=== PATIENT | male | born 1960 | race Caucasian/White ===

== ENCOUNTER 2017-02-13 03:31 | Inpatient (IN) ==
[2017-02-13] MEDS ORDERED: PIPERACILLIN/TAZOBACTAM 3,375 MG in SODIUM CHLORIDE 0.9% 100 ML IV STA (03:55)
[2017-02-13] MEDS ORDERED: MORPHINE 2 MG/1 ML SYRINGE IV STA (03:55)
[2017-02-13] MEDS ORDERED: ONDANSETRON 4 MG/2 ML VIAL IV STA (03:55)
[2017-02-13] MEDS ORDERED: SODIUM CHLORIDE 0.9% 1,000 ML IV STA (03:55)
[2017-02-13] MEDS ORDERED: MORPHINE 2 MG/1 ML SYRINGE ONE (04:22)
[2017-02-13] MEDS ORDERED: ONDANSETRON 4 MG/2 ML VIAL ONE (04:22)
[2017-02-13 04:26] LABS: Basophils % 0.5 % (0.0-0.8); Eosinophils # 0.1 10*3/uL (0.0-0.87); Eosinophils % 1.6 % (0.00-10.9); Hematocrit 46.2 VOL% (42.0-52.0); Hemoglobin 16.2 GM/DL (14.0-18.0); Immature Granulocytes % 0.4 %; Immature Granulocytes Absolute 0.03 #; Lymphocytes # 1.5 10*3/uL (1.4-4.0); Lymphocytes % 20.5 % (21.2-54.2); Mean Corpuscular HGB Conc 35.1 GM/DL (32-36); Mean Corpuscular Hemoglobin 31 PG (27-34); Mean Corpuscular Volume 88.2 FL (87-102); Mean Platelet Volume 10.4 FL (9.6-12.0); Monocytes # 0.4 10*3/uL (0.11-0.8); Monocytes % 4.9 % (1.7-12.7); Neutrophils # 5.3 10*3/uL (1.4-7.4); Neutrophils % 72.1 % (38.7-73.9); Platelet Count 212 T/CUMM (130-400); Red Blood Count 5.24 MC/CUMM (3.8-5.5); Red Cell Distribution Width 12.8 % (9.3-17.3); White Blood Count 7.3 T/CUMM (4-12)
[2017-02-13] MEDS ORDERED: PIPERACILLIN/TAZOBACTAM 3,375 MG VIAL IV ONE (04:39)
[2017-02-13] MEDS ORDERED: HYDROmorphone 2 MG/1 ML VIAL IV STA (04:52)
[2017-02-13] MEDS ORDERED: HYDROmorphone 2 MG/1 ML VIAL ONE (04:54)
[2017-02-13 04:58] LABS: Albumin 3.9 G/DL (3.4-5.0); Bilirubin,Total 0.6 MG/DL (0.2-1.0); Osmolality,Calculated 279.4 MOS/KG (273-304); Potassium 4.4 MMOL/L (3.5-5.1); Total Protein 7.4 G/DL (6.4-8.3)
[2017-02-13] MEDS ORDERED: HYDROmorphone 2 MG/1 ML VIAL IV PRN (08:36)
[2017-02-13] MEDS ORDERED: ACETAMINOPHEN 325 MG TABLET PO PRN (08:36)
[2017-02-13] MEDS ORDERED: ONDANSETRON 4 MG/2 ML VIAL IV PRN (08:36)
[2017-02-13] MEDS: GABAPENTIN 600 MG TABLET PO SCH ×3 (10:15→20:26)
[2017-02-13] MEDS: PANTOPRAZOLE 40 MG TABLET PO SCH (10:15)
[2017-02-13] MEDS: DEXTROSE 5% LACTATED RINGERS 1,000 ML IV SCH ×2 (10:30→16:45)
[2017-02-13] MEDS: PIPERACILLIN/TAZOBACTAM 3,375 MG in SODIUM CHLORIDE 0.9% 100 ML IV SCH ×2 (14:35→20:26)
[2017-02-14] MEDS: DEXTROSE 5% LACTATED RINGERS 1,000 ML IV SCH ×2 (02:35→09:40)
[2017-02-14] MEDS: PIPERACILLIN/TAZOBACTAM 3,375 MG in SODIUM CHLORIDE 0.9% 100 ML IV SCH ×3 (03:24→21:22)
[2017-02-14] MEDS: GABAPENTIN 600 MG TABLET PO SCH ×3 (09:00→21:21)
[2017-02-14] MEDS: PANTOPRAZOLE 40 MG TABLET PO SCH (09:00)
[2017-02-14] MEDS ORDERED: TISSUE ADHESIVE 1 EACH APPLICATOR TOP ONE (12:44)
[2017-02-14] MEDS ORDERED: BUPIVACAINE 0.25% 50 ML VIAL ONE (12:44)
[2017-02-14] MEDS ORDERED: SUGAMMADEX 200 MG/2 ML VIAL IV ONE (14:17)
[2017-02-14] MEDS ORDERED: PROPOFOL 200 MG/20 ML VIAL IV ONE (14:33)
[2017-02-14] MEDS ORDERED: NEOSTIGMINE 10 MG/10 ML VIAL ONE (14:34)
[2017-02-14] MEDS ORDERED: ACETAMINOPHEN 1,000 MG/100 ML VIAL IV ONE (14:34)
[2017-02-14] MEDS ORDERED: MIDAZOLAM 2 MG/2 ML VIAL ONE (14:34)
[2017-02-14] MEDS ORDERED: ONDANSETRON 4 MG/2 ML VIAL ONE (14:34)
[2017-02-14] MEDS ORDERED: fentaNYL 100 MCG/2 ML VIAL ONE (14:34)
[2017-02-14] MEDS ORDERED: GLYCOPYRROLATE 0.4 MG/2 ML VIAL ONE (14:34)
[2017-02-14] MEDS ORDERED: ROCURONIUM 100 MG/10 ML VIAL IV ONE (14:35)
[2017-02-14] MEDS ORDERED: SUCCINYLCHOLINE 200 MG/10 ML VIAL ONE (14:35)
[2017-02-15] MEDS: PIPERACILLIN/TAZOBACTAM 3,375 MG in SODIUM CHLORIDE 0.9% 100 ML IV SCH ×3 (03:13→20:05)
[2017-02-15 05:50] LABS: Basophils % 0.2 % (0.0-0.8); Eosinophils # 0.2 10*3/uL (0.0-0.87); Eosinophils % 3.5 % (0.00-10.9); Hematocrit 38.8 VOL% (42.0-52.0); Hemoglobin 13.1 GM/DL (14.0-18.0); Immature Granulocytes % 0.3 %; Immature Granulocytes Absolute 0.02 #; Lymphocytes # 1.6 10*3/uL (1.4-4.0); Lymphocytes % 28.1 % (21.2-54.2); Mean Corpuscular HGB Conc 33.8 GM/DL (32-36); Mean Corpuscular Hemoglobin 31 PG (27-34); Mean Corpuscular Volume 90.9 FL (87-102); Mean Platelet Volume 10.5 FL (9.6-12.0); Monocytes # 0.3 10*3/uL (0.11-0.8); Monocytes % 5.8 % (1.7-12.7); Neutrophils # 3.6 10*3/uL (1.4-7.4); Neutrophils % 62.1 % (38.7-73.9); Platelet Count 160 T/CUMM (130-400); Red Blood Count 4.27 MC/CUMM (3.8-5.5); Red Cell Distribution Width 12.8 % (9.3-17.3); White Blood Count 5.7 T/CUMM (4-12)
[2017-02-15 06:27] LABS: Calcium 8.3 MG/DL (8.5-10.1); Osmolality,Calculated 277.3 MOS/KG (273-304); Potassium 4.1 MMOL/L (3.5-5.1)
[2017-02-15] MEDS: DEXTROSE 5% LACTATED RINGERS 1,000 ML IV SCH ×3 (06:52→20:06)
[2017-02-15 07:55] LABS: Band Neutrophils 1 % (0-10); Eosinophils 3 % (0-10); Giant Platelets Few; Hypochromasia 1+; Lymphocytes 25 % (20-55); Microcytosis Slight; Ovalocytes Slight; Platelet Estimate Normal; Segmented Neutrophils 68 % (50-85); Total Cells Counted 100
[2017-02-15] MEDS: PANTOPRAZOLE 40 MG TABLET PO SCH (09:03)
[2017-02-15] MEDS: GABAPENTIN 600 MG TABLET PO SCH ×3 (09:03→21:19)
[2017-02-15 12:15] LABS: Calcium 7.9 MG/DL (8.5-10.1)
[2017-02-15 12:16] LABS: Potassium 4.2 MMOL/L (3.5-5.1)
[2017-02-15 13:22] LABS: Apearance,Urine CLEAR (Clear); Glucose,Urine (UA) Negative (Negative); Ketones,Urine Negative (Negative); Nitrite,Urine Negative (Negative); Protein,Urine Negative; Urine Color Straw (Yellow); Urine Specific Gravity 1.006 (1.001-1.035)
[2017-02-15 13:23] LABS: Bacteria,Urine Occasional /HPF (Few); Bilirubin,Urine Negative (Negative); Blood, Urine Negative (Negative); Urine Urobilinogen < 2.0 EU/DL (0.2-1.0); WBC,Urine <1 /HPF (0-6)
[2017-02-16] MEDS: DEXTROSE 5% LACTATED RINGERS 1,000 ML IV SCH ×2 (03:31→09:40)
[2017-02-16] MEDS: PIPERACILLIN/TAZOBACTAM 3,375 MG in SODIUM CHLORIDE 0.9% 100 ML IV SCH (04:42)
[2017-02-16 05:05] LABS: Calcium 7.8 MG/DL (8.5-10.1); Osmolality,Calculated 284.8 MOS/KG (273-304); Potassium 3.5 MMOL/L (3.5-5.1)
[2017-02-16] MEDS: GABAPENTIN 600 MG TABLET PO SCH (09:39)
[2017-02-16] MEDS: PANTOPRAZOLE 40 MG TABLET PO SCH (09:39)
[2017-02-16 13:03] VITALS: BP 120/66
== END 2017-02-16 12:58 | disposition home or self-care (01) | DRG 418 ==
LOC: N.EDINP 03:31 → N.ED 03:31 → N.3E 10:01
PROVIDERS: ADMIT Surgery; ATTEND Surgery
PROC: LAPCHOL (2017-02-14 13:14)

== ENCOUNTER 2017-09-12 07:14 | Inpatient (IN) ==
[2017-09-12] MEDS ORDERED: ONDANSETRON 4 MG/2 ML VIAL IV PRN ×2 (07:39→09:08)
[2017-09-12] MEDS ORDERED: MORPHINE 4 MG/1 ML VIAL IV PRN (07:39)
[2017-09-12] MEDS ORDERED: ASPIRIN 325 MG TABLET PO STA (07:39)
[2017-09-12 07:47] LABS: Basophils % 0.4 % (0.0-0.8); Eosinophils # 0.1 10*3/uL (0.0-0.87); Eosinophils % 1.6 % (0.00-10.9); Hematocrit 45.5 VOL% (42.0-52.0); Hemoglobin 16.1 GM/DL (14.0-18.0); Immature Granulocytes % 0.2 %; Immature Granulocytes Absolute 0.01 #; Lymphocytes # 1.5 10*3/uL (1.4-4.0); Mean Corpuscular HGB Conc 35.4 GM/DL (32-36); Mean Corpuscular Hemoglobin 31 PG (27-34); Mean Corpuscular Volume 88.3 FL (87-102); Mean Platelet Volume 10.5 FL (9.6-12.0); Monocytes # 0.3 10*3/uL (0.11-0.8); Monocytes % 6.3 % (1.7-12.7); Neutrophils # 2.6 10*3/uL (1.4-7.4); Neutrophils % 58.5 % (38.7-73.9); Platelet Count 181 T/CUMM (130-400); Red Blood Count 5.15 MC/CUMM (3.8-5.5); Red Cell Distribution Width 12.7 % (9.3-17.3); White Blood Count 4.5 T/CUMM (4-12)
[2017-09-12] MEDS ORDERED: ENOXAPARIN 80 MG/0.8 ML SYRINGE SUBCUT STA (07:52)
[2017-09-12 07:55] LABS: PT Patient Result 10.4 SECS; Partial Thromboplastin Time 25.4 SECS (0-40)
[2017-09-12 08:12] LABS: Albumin 3.7 G/DL (3.4-5.0); Bilirubin,Total 1.1 MG/DL (0.2-1.0); Calcium 8.9 MG/DL (8.5-10.1); Osmolality,Calculated 277.4 MOS/KG (273-304); Potassium 3.9 MMOL/L (3.5-5.1); Total Protein 7.5 G/DL (6.4-8.3)
[2017-09-12] MEDS ORDERED: amLODIPine 5 MG TABLET PO STA (09:07)
[2017-09-12] MEDS ORDERED: MAGNESIUM SULF RIDER 4 GM in PREMIX 1 EACH IV PRN (09:08)
[2017-09-12] MEDS ORDERED: MAGNESIUM SULF RIDER 2 GM in PREMIX 1 EACH IV PRN (09:08)
[2017-09-12] MEDS ORDERED: POTASSIUM CHLORIDE 20 MEQ TABLET PO PRN ×2 (09:08)
[2017-09-12] MEDS ORDERED: ALUM/MAG/SIMETH/LIDO VISC 1:1 30 ML BOTTLE PO PRN (09:08)
[2017-09-12] MEDS ORDERED: BISACODYL 5 MG TABLET PO PRN (09:08)
[2017-09-12 09:24] LABS: Risk Ratio 4.83; VLDL CHOLESTEROL 42.8 MG/DL
[2017-09-12 14:43] LABS: Apearance,Urine CLEAR (Clear); Bilirubin,Urine Negative (Negative); Blood, Urine Negative (Negative); Glucose,Urine (UA) Negative (Negative); Ketones,Urine Negative (Negative); Nitrite,Urine Negative (Negative); Protein,Urine Negative; RBC,Urine <1 /HPF (0-4); Urine Color Straw (Yellow); Urine Specific Gravity 1.015 (1.001-1.035); Urine Urobilinogen < 2.0 EU/DL (0.2-1.0); WBC,Urine <1 /HPF (0-6)
[2017-09-12 15:42] LABS: AFP Tumor 2.5 NG/ML (0-8); Cancer Antigen 19-9 8.6 U/ML (0-37); Carcinoembryonic Antigen 0.8 NG/ML (0.0-5.0)
[2017-09-12] MEDS: GABAPENTIN 600 MG TABLET PO SCH ×2 (17:26→21:18)
[2017-09-12] MEDS: ACETAMINOPHEN 325 MG TABLET PO SCH ×2 (18:24→21:18)
[2017-09-12] MEDS: CARVEDILOL 3.125 MG TABLET PO SCH (21:18)
[2017-09-12] MEDS: SIMVASTATIN 40 MG TABLET PO SCH (21:18)
[2017-09-12] MEDS: HEPARIN 5,000 UNIT/1 ML VIAL SUBCUT SCH (21:18)
[2017-09-13 05:02] LABS: Basophils % 0.6 % (0.0-0.8); Eosinophils # 0.1 10*3/uL (0.0-0.87); Eosinophils % 1.9 % (0.00-10.9); Hematocrit 46.5 VOL% (42.0-52.0); Hemoglobin 16.2 GM/DL (14.0-18.0); Immature Granulocytes % 0.4 %; Immature Granulocytes Absolute 0.02 #; Lymphocytes % 41.3 % (21.2-54.2); Mean Corpuscular HGB Conc 34.8 GM/DL (32-36); Mean Corpuscular Hemoglobin 31 PG (27-34); Mean Corpuscular Volume 88.4 FL (87-102); Monocytes # 0.3 10*3/uL (0.11-0.8); Neutrophils # 2.4 10*3/uL (1.4-7.4); Neutrophils % 49.8 % (38.7-73.9); Platelet Count 187 T/CUMM (130-400); Red Blood Count 5.26 MC/CUMM (3.8-5.5); Red Cell Distribution Width 13.1 % (9.3-17.3); White Blood Count 4.8 T/CUMM (4-12)
[2017-09-13 05:22] LABS: Albumin 3.5 G/DL (3.4-5.0); Bilirubin,Total 0.9 MG/DL (0.2-1.0); Calcium 8.6 MG/DL (8.5-10.1); Osmolality,Calculated 282.1 MOS/KG (273-304); Potassium 3.9 MMOL/L (3.5-5.1); Total Protein 6.9 G/DL (6.4-8.3)
[2017-09-13] MEDS: HEPARIN 5,000 UNIT/1 ML VIAL SUBCUT SCH ×3 (06:34→20:59)
[2017-09-13] MEDS ORDERED: NITROGLYCERIN SL 0.4 MG TABLET SL ONE (08:48)
[2017-09-13] MEDS ORDERED: ASPIRIN CHEW 81 MG TABLET PO ONE (08:48)
[2017-09-13] MEDS ORDERED: LORazepam 2 MG/1 ML VIAL IV ONE (08:50)
[2017-09-13] MEDS ORDERED: HYDROmorphone 2 MG/1 ML VIAL IV ONE (08:50)
[2017-09-13] MEDS ORDERED: HYDROmorphone 2 MG/1 ML VIAL ONE (08:52)
[2017-09-13] MEDS ORDERED: LORazepam 2 MG/1 ML VIAL ONE (08:53)
[2017-09-13] MEDS ORDERED: NITROGLYCERIN SL 0.4 MG TABLET SL PRN (08:55)
[2017-09-13] MEDS ORDERED: PANTOPRAZOLE 40 MG TABLET PO SCH (09:00)
[2017-09-13] MEDS ORDERED: amLODIPine 5 MG TABLET PO SCH (09:00)
[2017-09-13] MEDS ORDERED: PANTOPRAZOLE 40 MG VIAL IV ONE ×2 (09:01→09:05)
[2017-09-13 09:14] LABS: ABG Base Excess 0.8 MMOL/L (-2.5-2.5); ABG HCO3 24.9 MMOL/L (20-26); ABG Oxygen Saturation 91.3 % (95-100); ABG PCO2 45.5 MM HG (35-48); ABG PH 7.376 (7.35-7.45); ABG PO2 56.7 MM HG (80-95); ABG TCO2 22.3 MMOL/L (23-27)
[2017-09-13 09:24] LABS: Basophils % 0.6 % (0.0-0.8); Eosinophils # 0.1 10*3/uL (0.0-0.87); Eosinophils % 1.7 % (0.00-10.9); Hematocrit 48.5 VOL% (42.0-52.0); Hemoglobin 16.6 GM/DL (14.0-18.0); Immature Granulocytes % 0.4 %; Immature Granulocytes Absolute 0.02 #; Lymphocytes # 1.6 10*3/uL (1.4-4.0); Lymphocytes % 34.7 % (21.2-54.2); Mean Corpuscular HGB Conc 34.2 GM/DL (32-36); Mean Corpuscular Hemoglobin 31 PG (27-34); Mean Corpuscular Volume 89.5 FL (87-102); Mean Platelet Volume 10.8 FL (9.6-12.0); Monocytes # 0.3 10*3/uL (0.11-0.8); Monocytes % 5.4 % (1.7-12.7); Neutrophils # 2.7 10*3/uL (1.4-7.4); Neutrophils % 57.2 % (38.7-73.9); Platelet Count 187 T/CUMM (130-400); Red Blood Count 5.42 MC/CUMM (3.8-5.5); Red Cell Distribution Width 12.9 % (9.3-17.3); White Blood Count 4.7 T/CUMM (4-12)
[2017-09-13 09:42] LABS: Albumin 3.5 G/DL (3.4-5.0); Bilirubin,Total 1.2 MG/DL (0.2-1.0); Calcium 8.9 MG/DL (8.5-10.1); Osmolality,Calculated 280.3 MOS/KG (273-304); Potassium 4.3 MMOL/L (3.5-5.1); Total Protein 7.1 G/DL (6.4-8.3)
[2017-09-13] MEDS: GABAPENTIN 100 MG CAPSULE PO SCH ×5 (15:06→21:00)
[2017-09-13] MEDS: ACETAMINOPHEN 325 MG TABLET PO SCH ×2 (15:07→21:00)
[2017-09-13] MEDS: GABAPENTIN 600 MG TABLET PO SCH ×3 (15:07→20:59)
[2017-09-13] MEDS: CARVEDILOL 3.125 MG TABLET PO SCH ×2 (15:18→20:59)
[2017-09-13] MEDS: ASPIRIN EC 325 MG TABLET PO SCH (15:18)
[2017-09-13] MEDS: ISOSORBIDE MONONITRATE 30 MG TABLET PO SCH (15:21)
[2017-09-13] MEDS: SODIUM CHLORIDE 0.45% 1,000 ML IV SCH (17:01)
[2017-09-13] MEDS: PANTOPRAZOLE 40 MG TABLET PO SCH (20:59)
[2017-09-13] MEDS ORDERED: DILTIAZEM 30 MG TABLET PO SCH (21:00)
[2017-09-13] MEDS: SIMVASTATIN 40 MG TABLET PO SCH (21:00)
[2017-09-14 03:47] LABS: Basophils % 0.1 % (0.0-0.8); Eosinophils % 0.4 % (0.00-10.9); Hemoglobin 15.3 GM/DL (14.0-18.0); Immature Granulocytes % 0.3 %; Immature Granulocytes Absolute 0.03 #; Lymphocytes # 2.3 10*3/uL (1.4-4.0); Mean Corpuscular Hemoglobin 31 PG (27-34); Mean Corpuscular Volume 90.2 FL (87-102); Mean Platelet Volume 11.1 FL (9.6-12.0); Monocytes # 0.6 10*3/uL (0.11-0.8); Monocytes % 6.7 % (1.7-12.7); Neutrophils # 6.4 10*3/uL (1.4-7.4); Neutrophils % 68.5 % (38.7-73.9); Platelet Count 174 T/CUMM (130-400); Red Blood Count 4.99 MC/CUMM (3.8-5.5); Red Cell Distribution Width 12.8 % (9.3-17.3); White Blood Count 9.4 T/CUMM (4-12)
[2017-09-14 04:31] LABS: Albumin 3.8 G/DL (3.4-5.0); Bilirubin,Total 1.3 MG/DL (0.2-1.0); Calcium 8.9 MG/DL (8.5-10.1); Osmolality,Calculated 280.3 MOS/KG (273-304); Total Protein 6.8 G/DL (6.4-8.3)
[2017-09-14] MEDS: HEPARIN 5,000 UNIT/1 ML VIAL SUBCUT SCH ×3 (05:48→20:53)
[2017-09-14] MEDS: SODIUM CHLORIDE 0.45% 1,000 ML IV SCH ×2 (05:50→17:51)
[2017-09-14] MEDS: ISOSORBIDE MONONITRATE 30 MG TABLET PO SCH (09:10)
[2017-09-14] MEDS: PANTOPRAZOLE 40 MG TABLET PO SCH ×2 (09:11→20:53)
[2017-09-14] MEDS: ASPIRIN EC 325 MG TABLET PO SCH (09:12)
[2017-09-14] MEDS: ACETAMINOPHEN 325 MG TABLET PO SCH ×2 (09:12→20:52)
[2017-09-14] MEDS: GABAPENTIN 600 MG TABLET PO SCH ×3 (09:12→20:52)
[2017-09-14] MEDS: CARVEDILOL 3.125 MG TABLET PO SCH ×2 (09:13→20:53)
[2017-09-14] MEDS ORDERED: NALBUPHINE 10 MG/ML AMP IV PRN (15:38)
[2017-09-14] MEDS: SIMVASTATIN 40 MG TABLET PO SCH (20:53)
[2017-09-15 04:12] LABS: Basophils % 0.4 % (0.0-0.8); Eosinophils # 0.1 10*3/uL (0.0-0.87); Eosinophils % 1.3 % (0.00-10.9); Hematocrit 42.2 VOL% (42.0-52.0); Hemoglobin 14.5 GM/DL (14.0-18.0); Immature Granulocytes % 0.6 %; Immature Granulocytes Absolute 0.03 #; Lymphocytes # 1.9 10*3/uL (1.4-4.0); Lymphocytes % 34.2 % (21.2-54.2); Mean Corpuscular HGB Conc 34.4 GM/DL (32-36); Mean Corpuscular Hemoglobin 31 PG (27-34); Mean Corpuscular Volume 89.6 FL (87-102); Mean Platelet Volume 10.7 FL (9.6-12.0); Monocytes # 0.4 10*3/uL (0.11-0.8); Monocytes % 6.5 % (1.7-12.7); Neutrophils # 3.1 10*3/uL (1.4-7.4); Platelet Count 161 T/CUMM (130-400); Red Blood Count 4.71 MC/CUMM (3.8-5.5); White Blood Count 5.4 T/CUMM (4-12)
[2017-09-15 04:24] LABS: Bilirubin,Total 0.8 MG/DL (0.2-1.0); Calcium 8.6 MG/DL (8.5-10.1); Osmolality,Calculated 283.1 MOS/KG (273-304); Potassium 3.9 MMOL/L (3.5-5.1); Total Protein 6.3 G/DL (6.4-8.3)
[2017-09-15] MEDS: SODIUM CHLORIDE 0.45% 1,000 ML IV SCH ×2 (04:48→06:01)
[2017-09-15] MEDS: HEPARIN 5,000 UNIT/1 ML VIAL SUBCUT SCH ×3 (04:49→21:55)
[2017-09-15] MEDS: PANTOPRAZOLE 40 MG TABLET PO SCH ×2 (09:21→21:55)
[2017-09-15] MEDS: GABAPENTIN 600 MG TABLET PO SCH ×3 (09:21→21:55)
[2017-09-15] MEDS: ASPIRIN EC 325 MG TABLET PO SCH (09:21)
[2017-09-15] MEDS: CARVEDILOL 3.125 MG TABLET PO SCH ×2 (09:21→21:55)
[2017-09-15] MEDS: ACETAMINOPHEN 325 MG TABLET PO SCH ×2 (09:22→21:55)
[2017-09-15] MEDS: ISOSORBIDE MONONITRATE 30 MG TABLET PO SCH (09:22)
[2017-09-15] MEDS: SIMVASTATIN 40 MG TABLET PO SCH (21:55)
[2017-09-16] MEDS: HEPARIN 5,000 UNIT/1 ML VIAL SUBCUT SCH ×2 (04:03→13:50)
[2017-09-16] MEDS ORDERED: LIDOCAINE 1% 5 ML VIAL ONE (08:12)
[2017-09-16] MEDS ORDERED: PROPOFOL 200 MG/20 ML VIAL IV ONE (08:12)
[2017-09-16 08:53] VITALS: BP 147/76
[2017-09-16] MEDS: ASPIRIN EC 325 MG TABLET PO SCH (09:48)
[2017-09-16] MEDS: ISOSORBIDE MONONITRATE 30 MG TABLET PO SCH (09:53)
[2017-09-16] MEDS: CARVEDILOL 3.125 MG TABLET PO SCH (09:54)
[2017-09-16] MEDS: PANTOPRAZOLE 40 MG TABLET PO SCH (09:54)
[2017-09-16] MEDS: ACETAMINOPHEN 325 MG TABLET PO SCH (09:54)
[2017-09-16] MEDS: GABAPENTIN 600 MG TABLET PO SCH (09:54)
== END 2017-09-16 13:53 | disposition home or self-care (01) | DRG 383 ==
LOC: N.ED 07:14 → N.EDINP 09:05 → N.TELEN 11:17
PROVIDERS: ADMIT Internal Medicine; ATTEND Internal Medicine

== ENCOUNTER 2020-02-24 08:02 | Observation (INO) ==
[2020-02-24] MEDS ORDERED: ASPIRIN 325 MG TABLET PO STA (08:42)
[2020-02-24 08:51] LABS: Basophils % 0.5 % (0.0-0.8); Eosinophils # 0.1 10*3/uL (0.0-0.87); Eosinophils % 1.8 % (0.00-10.9); Hematocrit 43.8 VOL% (42.0-52.0); Hemoglobin 15.3 GM/DL (14.0-18.0); Immature Granulocytes % 0.4 %; Immature Granulocytes Absolute 0.02 #; Lymphocytes # 1.4 10*3/uL (1.4-4.0); Lymphocytes % 24.7 % (21.2-54.2); Mean Corpuscular HGB Conc 34.9 GM/DL (32-36); Mean Corpuscular Volume 93.6 FL (87-102); Mean Platelet Volume 10.5 FL (9.6-12.0); Monocytes % 5.4 % (1.7-12.7); Neutrophils % 67.2 % (38.7-73.9); Platelet Count 188 T/CUMM (130-400); Red Blood Count 4.68 MC/CUMM (3.8-5.5); Red Cell Distribution Width 13.2 % (9.3-17.3); White Blood Count 5.5 T/CUMM (4-12)
[2020-02-24 08:59] LABS: PT Patient Result 10.8 SECS (9.8-11.9); Partial Thromboplastin Time 24.4 SECS (23.9-33.8)
[2020-02-24 09:18] LABS: Albumin 3.7 G/DL (3.4-5.0); Bilirubin,Total 1.6 MG/DL (0.2-1.0); Calcium 8.7 MG/DL (8.5-10.1); Osmolality,Calculated 278.4 MOS/KG (273-304); Total Protein 7.3 G/DL (6.4-8.3)
[2020-02-24 14:42] LABS: Troponin I < 0.015 NG/ML (0.00-0.045)
[2020-02-24] MEDS: GABAPENTIN 600 MG TABLET PO SCH ×2 (14:49→20:50)
[2020-02-24 16:55] LABS: Troponin I < 0.015 NG/ML (0.00-0.045)
[2020-02-24] MEDS: PANTOPRAZOLE 40 MG TABLET PO SCH (20:51)
[2020-02-24] MEDS ORDERED: ROSUVASTATIN 10 MG TABLET PO SCH (21:00)
[2020-02-24] MEDS ORDERED: PANTOPRAZOLE 40 MG TABLET PO SCH (21:00)
[2020-02-24] MEDS ORDERED: LOSARTAN 50 MG TABLET PO SCH (21:00)
[2020-02-25 06:43] LABS: Basophils % 0.4 % (0.0-0.8); Eosinophils # 0.1 10*3/uL (0.0-0.87); Eosinophils % 2.1 % (0.00-10.9); Immature Granulocytes % 0.2 %; Immature Granulocytes Absolute 0.01 #; Lymphocytes # 1.5 10*3/uL (1.4-4.0); Lymphocytes % 31.5 % (21.2-54.2); Mean Corpuscular HGB Conc 34.9 GM/DL (32-36); Mean Corpuscular Volume 96.2 FL (87-102); Mean Platelet Volume 11.3 FL (9.6-12.0); Neutrophils % 58.8 % (38.7-73.9); Platelet Count 150 T/CUMM (130-400); Red Blood Count 4.47 MC/CUMM (3.8-5.5); Red Cell Distribution Width 13.1 % (9.3-17.3); White Blood Count 4.9 T/CUMM (4-12)
[2020-02-25 07:03] LABS: Calcium 8.6 MG/DL (8.5-10.1); Osmolality,Calculated 279.4 MOS/KG (273-304); Potassium 3.9 MMOL/L (3.5-5.1)
[2020-02-25 07:05] LABS: Risk Ratio 3.64; VLDL CHOLESTEROL 29.8 MG/DL
[2020-02-25] MEDS ORDERED: ROSUVASTATIN 20 MG TABLET PO SCH (07:15)
[2020-02-25 08:34] VITALS: BP 132/70
[2020-02-25] MEDS ORDERED: ASPIRIN EC 81 MG TABLET PO SCH (09:00)
[2020-02-25] MEDS: PANTOPRAZOLE 40 MG TABLET PO SCH (10:01)
[2020-02-25] MEDS: GABAPENTIN 600 MG TABLET PO SCH (10:01)
[2020-02-25] MEDS ORDERED: SERTRALINE 25 MG TABLET PO SCH (21:00)
== END 2020-02-25 10:43 | disposition home or self-care (01) ==
LOC: N.EDINP 08:02 → N.ED 08:02 → N.EDINP 13:10 → N.TELEN 13:47
PROVIDERS: ADMIT Internal Medicine; ATTEND Internal Medicine

== ENCOUNTER 2022-01-19 21:35 | Observation (INO) ==
[2022-01-19 22:07] LABS: Basophils % 0.5 % (0.0-0.8); Eosinophils # 0.1 10*3/uL (0.0-0.87); Eosinophils % 2.1 % (0.00-10.9); Hematocrit 43.4 VOL% (42.0-52.0); Hemoglobin 14.9 GM/DL (14.0-18.0); Immature Granulocytes % 0.2 %; Immature Granulocytes Absolute 0.01 #; Lymphocytes # 1.8 10*3/uL (1.4-4.0); Lymphocytes % 32.3 % (21.2-54.2); Mean Corpuscular HGB Conc 34.3 GM/DL (32-36); Mean Corpuscular Volume 89.9 FL (87-102); Mean Platelet Volume 10.8 FL (9.6-12.0); Monocytes # 0.4 10*3/uL (0.11-0.8); Monocytes % 6.2 % (1.7-12.7); Neutrophils % 58.7 % (38.7-73.9); Platelet Count 169 T/CUMM (130-400); Red Blood Count 4.83 MC/CUMM (3.8-5.5); Red Cell Distribution Width 12.9 % (9.3-17.3); White Blood Count 5.7 T/CUMM (4-12)
[2022-01-19] MEDS ORDERED: ASPIRIN 325 MG TABLET ONE (22:16)
[2022-01-19] MEDS ORDERED: NITROGLYCERIN SL 0.4 MG TABLET SL ONE (22:16)
[2022-01-19] MEDS ORDERED: NITROGLYCERIN SL 0.4 MG TABLET SL STA (22:19)
[2022-01-19] MEDS ORDERED: ASPIRIN 325 MG TABLET PO STA (22:19)
[2022-01-19 22:27] LABS: Albumin 4.1 G/DL (3.4-5.0); Calcium 8.8 MG/DL (8.5-10.1); Osmolality,Calculated 278.3 MOS/KG (273-304); Potassium 3.7 MMOL/L (3.5-5.1); Total Protein 6.9 G/DL (6.4-8.2)
[2022-01-19] MEDS ORDERED: MORPHINE 2 MG/1 ML SYRINGE IV STA (22:37)
[2022-01-19] MEDS ORDERED: ONDANSETRON 4 MG/2 ML VIAL IV ONE (22:37)
[2022-01-20] MEDS ORDERED: ONDANSETRON 4 MG/2 ML VIAL IV PRN (02:00)
[2022-01-20] MEDS ORDERED: MORPHINE 2 MG/1 ML SYRINGE IV PRN (02:00)
[2022-01-20] MEDS ORDERED: ACETAMINOPHEN 325 MG TABLET PO PRN (02:00)
[2022-01-20] MEDS ORDERED: NITROGLYCERIN SL 0.4 MG TABLET SL PRN (02:00)
[2022-01-20 03:35] LABS: Calcium 8.3 MG/DL (8.5-10.1); Osmolality,Calculated 278.3 MOS/KG (273-304); Potassium 3.7 MMOL/L (3.5-5.1); Thyroid Stimulating Hormone 2.13 uIU/ml (0.358-3.74)
[2022-01-20] MEDS ORDERED: hydrALAZINE 20 MG/1 ML VIAL IV PRN (04:48)
[2022-01-20 06:00] LABS: Basophils % 0.7 % (0.0-0.8); Eosinophils # 0.1 10*3/uL (0.0-0.87); Eosinophils % 2.3 % (0.00-10.9); Hematocrit 39.6 VOL% (42.0-52.0); Hemoglobin 13.4 GM/DL (14.0-18.0); Immature Granulocytes % 0.2 %; Immature Granulocytes Absolute 0.01 #; Lymphocytes # 1.8 10*3/uL (1.4-4.0); Lymphocytes % 40.8 % (21.2-54.2); Mean Corpuscular HGB Conc 33.8 GM/DL (32-36); Mean Corpuscular Volume 90.2 FL (87-102); Monocytes # 0.2 10*3/uL (0.11-0.8); Platelet Count 142 T/CUMM (130-400); Red Blood Count 4.39 MC/CUMM (3.8-5.5); White Blood Count 4.4 T/CUMM (4-12)
[2022-01-20 06:14] LABS: PT Patient Result 11.4 SECS (10.1-12.1); Partial Thromboplastin Time 25.9 SECS (23.7-32.9)
[2022-01-20] MEDS: LEVOTHYROXINE 50 MCG TABLET PO SCH (07:25)
[2022-01-20] MEDS ORDERED: amLODIPine 5 MG TABLET PO SCH (09:00)
[2022-01-20] MEDS ORDERED: AZITHROMYCIN 250 MG TABLET PO SCH (09:00)
[2022-01-20] MEDS: PANTOPRAZOLE 40 MG TABLET PO SCH ×2 (09:14→21:13)
[2022-01-20] MEDS: ENOXAPARIN 40 MG/0.4 ML SYRINGE SUBCUT SCH (09:14)
[2022-01-20] MEDS: GABAPENTIN 600 MG TABLET PO SCH ×3 (09:14→21:13)
[2022-01-20] MEDS ORDERED: amLODIPine 5 MG TABLET PO ONE (14:14)
[2022-01-20] MEDS ORDERED: LOSARTAN 50 MG TABLET PO SCH ×2 (21:00)
[2022-01-21 04:57] LABS: Basophils % 0.4 % (0.0-0.8); Eosinophils # 0.1 10*3/uL (0.0-0.87); Hematocrit 41.8 VOL% (42.0-52.0); Immature Granulocytes % 0.2 %; Immature Granulocytes Absolute 0.01 #; Lymphocytes # 1.6 10*3/uL (1.4-4.0); Lymphocytes % 32.3 % (21.2-54.2); Mean Corpuscular HGB Conc 33.5 GM/DL (32-36); Mean Corpuscular Volume 91.1 FL (87-102); Mean Platelet Volume 11.5 FL (9.6-12.0); Monocytes # 0.3 10*3/uL (0.11-0.8); Monocytes % 5.8 % (1.7-12.7); Neutrophils % 59.3 % (38.7-73.9); Platelet Count 150 T/CUMM (130-400); Red Blood Count 4.59 MC/CUMM (3.8-5.5); Red Cell Distribution Width 13.1 % (9.3-17.3)
[2022-01-21 05:18] LABS: Albumin 3.4 G/DL (3.4-5.0); Bilirubin,Direct 0.28 MG/DL (0.0-0.20); Bilirubin,Indirect 0.8 MG/DL (0.0-1.0); Bilirubin,Total 1.1 MG/DL (0.20-1.00); Total Protein 5.9 G/DL (6.4-8.2)
[2022-01-21 05:20] LABS: Calcium 8.6 MG/DL (8.5-10.1); Osmolality,Calculated 281.1 MOS/KG (273-304); Potassium 3.7 MMOL/L (3.5-5.1); Risk Ratio 2.32; VLDL Cholesterol 22.2 MG/DL
[2022-01-21] MEDS: LEVOTHYROXINE 50 MCG TABLET PO SCH (06:33)
[2022-01-21] MEDS ORDERED: amLODIPine 10 MG TABLET PO SCH (09:00)
[2022-01-21] MEDS ORDERED: ASPIRIN EC 325 MG TABLET PO SCH (09:00)
[2022-01-21] MEDS: ENOXAPARIN 40 MG/0.4 ML SYRINGE SUBCUT SCH (09:06)
[2022-01-21] MEDS: GABAPENTIN 600 MG TABLET PO SCH ×2 (09:06→15:21)
[2022-01-21] MEDS: PANTOPRAZOLE 40 MG TABLET PO SCH (09:06)
[2022-01-21 11:58] VITALS: BP 135/66
== END 2022-01-21 15:08 | disposition home or self-care (01) ==
LOC: N.EDINP 21:35 → N.ED 21:35 → N.TELES 01-20 04:39
PROVIDERS: ADMIT Hospitalist; ATTEND Hospitalist